=== PATIENT | female | born 2000 | race Caucasian/White ===

== ENCOUNTER 2021-07-18 12:19 | Emergency (ER) | payer MEDICAID ==
[~2021-07-18] VITALS: Ht 154.9 cm; Wt 49.9 kg
[2021-07-18 12:29] VITALS: BP_SYST 126
[2021-07-18] MEDS ORDERED: ONDANSETRON HCL 4 MG/2 ML VIAL IVP ONE (13:00)
[2021-07-18] MEDS ORDERED: MORPHINE 2 MG/ML INJ. SYRINGE IVP ONE (13:00)
[2021-07-18] MEDS ORDERED: NACL 0.9% 1,000 ML IV ONE (13:00)
[2021-07-18 13:36] LABS: CALCIUM 8.7 mg/dL (8.4-11.0); CREATININE 0.8 mg/dL (0.55-1.30); HEMATOCRIT 39.4 % (36-48); HEMOGLOBIN 13.6 g/dL (12.0-16.0); MEAN CORPUSCULAR HEMOGLOBIN 31 pg (27-31); MEAN CORPUSCULAR HGB CONC 35 % (32-36); MEAN CORPUSCULAR VOLUME 89 fL (79.0-98.0); POTASSIUM 3.6 mmol/L (3.5-5.1); RED BLOOD CELL COUNT(AUTO) 4.41 MIL/uL (4.2-6.2); RED CELL DISTRIBUTION WIDTH 13.1 % (9.0-15.0); WHITE BLOOD COUNT (AUTO) 5.4 K/uL (4.8-10.8)
[2021-07-18 13:37] LABS: BASOPHILS % (AUTO) 0.7 % (0.0-2.0); EOSINOPHILS % (AUTO) 0.3 % (0.0-4.0); LYMPHOCYTES # (AUTO) 2.1 K/uL (1.0-5.5); LYMPHOCYTES % (AUTO) 38.4 % (20.5-51.5); MONOCYTES # (AUTO) 0.3 K/uL (0.0-1.0); MONOCYTES % (AUTO) 6.4 % (1.7-9.3); NEUTROPHILS # (AUTO) 2.9 K/uL (1.8-7.7); NEUTROPHILS % (AUTO) 54.5 % (40.0-70.0); PLATELET COUNT (AUTO) 299 K/uL (130-430)
[2021-07-18 13:40] LABS: INR 1.1 (0.8-1.2); PROTHROMBIN TIME 11.2 SECS (9.5-12.5)
[2021-07-18 13:42] LABS: ALBUMIN 4.2 g/dL (3.4-4.8); TOTAL BILIRUBIN 1.5 mg/dL (0.0-1.0)
[2021-07-18 15:18] LABS: BILIRUBIN,URINE NEGATIVE (NEGATIVE); BLOOD, URINE NEGATIVE (NEGATIVE); CLARITY/URINE CLEAR (CLEAR); COLOR,URINE YELLOW (YELLOW); GLUCOSE,URINE NEGATIVE (NEGATIVE); KETONES,URINE 3+ (NEGATIVE); LEUKOCYTE ESTERASE ,URINE NEGATIVE (NEGATIVE); NITRITE, URINE NEGATIVE (NEGATIVE); PROTEIN URINE NEGATIVE (NEGATIVE); UROBILINOGEN,URINE 0.2 (0.2-1.0)
[2021-07-18] MEDS ORDERED: IBUP-1969 PO (15:36)
[2021-07-18 15:58] VITALS: BP_SYST 126
[2021-07-19] MEDS ORDERED: TRAM50TA PO (10:24)
[2021-07-19] MEDS ORDERED: ONDA-8 TL (10:24)
== END 2021-07-18 15:58 | disposition home or self-care (01) ==
LOC: SED 12:19
DX: R10.31 Right lower quadrant pain (principal)
CPT/HCPCS: 36415; 74176; 76376; 80053; 81003; 81025; 83690; 84702; 85025; 85610; 85730; 96361; 96374; 96375; 99284; J2270; J2405; J7030

== ENCOUNTER 2021-07-19 08:37 | Emergency (ER) | payer MEDICAID ==
[~2021-07-19] VITALS: Ht 157.5 cm; Wt 49.9 kg
[~2021-07-19 08:37] MED LIST: IBUP-1969 PO
[2021-07-19 08:53] VITALS: BP_SYST 139
[2021-07-19] MEDS ORDERED: KETOROLAC TROMETHAMINE 60 MG/2 ML VIAL IM ONE (09:00)
[2021-07-19] MEDS ORDERED: ONDANSETRON 4 MG ODT TAB PO ONE (09:00)
[2021-07-19 09:10] LABS: BILIRUBIN,URINE NEGATIVE (NEGATIVE); BLOOD, URINE NEGATIVE (NEGATIVE); CLARITY/URINE CLEAR (CLEAR); COLOR,URINE YELLOW (YELLOW); GLUCOSE,URINE NEGATIVE (NEGATIVE); KETONES,URINE 1+ (NEGATIVE); LEUKOCYTE ESTERASE ,URINE NEGATIVE (NEGATIVE); NITRITE, URINE NEGATIVE (NEGATIVE); PROTEIN URINE NEGATIVE (NEGATIVE); UROBILINOGEN,URINE 0.2 (0.2-1.0)
[2021-07-19 09:14] LABS: BASOPHILS % (AUTO) 0.8 % (0.0-2.0); EOSINOPHILS % (AUTO) 0.7 % (0.0-4.0); HEMATOCRIT 38.2 % (36-48); HEMOGLOBIN 13.2 g/dL (12.0-16.0); LYMPHOCYTES # (AUTO) 1.5 K/uL (1.0-5.5); LYMPHOCYTES % (AUTO) 28.6 % (20.5-51.5); MEAN CORPUSCULAR HEMOGLOBIN 31 pg (27-31); MEAN CORPUSCULAR HGB CONC 35 % (32-36); MEAN CORPUSCULAR VOLUME 89 fL (79.0-98.0); MONOCYTES # (AUTO) 0.4 K/uL (0.0-1.0); NEUTROPHILS # (AUTO) 3.2 K/uL (1.8-7.7); NEUTROPHILS % (AUTO) 62.9 % (40.0-70.0); PLATELET COUNT (AUTO) 291 K/uL (130-430); RED BLOOD CELL COUNT(AUTO) 4.29 MIL/uL (4.2-6.2); WHITE BLOOD COUNT (AUTO) 5.1 K/uL (4.8-10.8)
[2021-07-19] MEDS ORDERED: ONDA-8 TL (10:24)
[2021-07-19] MEDS ORDERED: TRAM50TA PO (10:24)
[2021-07-19 10:32] VITALS: BP_SYST 132
[2021-07-21 08:06] LABS: CHLAMYDIA TRACHOMATIS NAA Negative (Negative); NEISSERIA GONORRHOEAE NAA Negative (Negative)
== END 2021-07-19 10:32 | disposition home or self-care (01) ==
LOC: SED 08:37
DX: N94.6 Dysmenorrhea, unspecified (principal); R10.30 Lower abdominal pain, unspecified; Z79.899 Other long term (current) drug therapy
CPT/HCPCS: 36415; 81003; 85025; 87491; 87591; 96372; 99283; J1885; Q0162

== ENCOUNTER 2021-08-29 06:45 | Emergency (ER) | payer MEDICAID ==
[~2021-08-29] VITALS: Ht 154.9 cm; Wt 50.3 kg
[2021-08-29 06:45] VITALS: BP_SYST 115
[~2021-08-29 06:45] MED LIST changes: +ONDA-8 TL; +TRAM50TA PO
[2021-08-29] MEDS ORDERED: MORPHINE 2 MG/ML INJ. SYRINGE IVP ONE (07:15)
[2021-08-29] MEDS ORDERED: ONDANSETRON HCL 4 MG/2 ML VIAL IVP ONE (07:15)
[2021-08-29] MEDS ORDERED: PANTOPRAZOLE SODIUM 40 MG/VIAL (PROTONIX) IVP ONE (07:15)
[2021-08-29] MEDS ORDERED: NACL 0.9% 1,000 ML IV ONE (07:15)
[2021-08-29 08:01] LABS: BASOPHILS % (AUTO) 0.3 % (0.0-2.0); EOSINOPHILS % (AUTO) 0.6 % (0.0-4.0); HEMOGLOBIN 14.5 g/dL (12.0-16.0); LYMPHOCYTES # (AUTO) 1.5 K/uL (1.0-5.5); LYMPHOCYTES % (AUTO) 19.7 % (20.5-51.5); MEAN CORPUSCULAR HEMOGLOBIN 30 pg (27-31); MEAN CORPUSCULAR HGB CONC 34 % (32-36); MEAN CORPUSCULAR VOLUME 90 fL (79.0-98.0); MONOCYTES # (AUTO) 0.4 K/uL (0.0-1.0); MONOCYTES % (AUTO) 4.5 % (1.7-9.3); NEUTROPHILS # (AUTO) 5.9 K/uL (1.8-7.7); NEUTROPHILS % (AUTO) 74.9 % (40.0-70.0); PLATELET COUNT (AUTO) 371 K/uL (130-430); RED BLOOD CELL COUNT(AUTO) 4.79 MIL/uL (4.2-6.2); WHITE BLOOD COUNT (AUTO) 7.9 K/uL (4.8-10.8)
[2021-08-29 08:10] LABS: CALCIUM 8.2 mg/dL (8.4-11.0); CREATININE 0.82 mg/dL (0.55-1.30)
[2021-08-29 08:14] LABS: ALBUMIN 4.4 g/dL (3.4-4.8); TOTAL BILIRUBIN 1.1 mg/dL (0.0-1.0)
[2021-08-29 08:26] LABS: BILIRUBIN,URINE NEGATIVE (NEGATIVE); BLOOD, URINE NEGATIVE (NEGATIVE); CLARITY/URINE CLEAR (CLEAR); COLOR,URINE YELLOW (YELLOW); GLUCOSE,URINE NEGATIVE (NEGATIVE); KETONES,URINE TRACE (NEGATIVE); LEUKOCYTE ESTERASE ,URINE NEGATIVE (NEGATIVE); NITRITE, URINE NEGATIVE (NEGATIVE); PH,URINE 5.5 (5.0-8.0); PROTEIN URINE NEGATIVE (NEGATIVE); UROBILINOGEN,URINE 0.2 (0.2-1.0)
[2021-08-29] MEDS ORDERED: METOCLOPRAMIDE HCL 10 MG/2 ML VIAL IVP ONE (10:00)
[2021-08-29] MEDS ORDERED: DIPHENHYDRAMINE INJ 50 MG/ML VIAL IVP ONE (10:00)
[2021-08-29] MEDS ORDERED: PRO40 PO (11:18)
[2021-08-29 11:25] VITALS: BP_SYST 101
== END 2021-08-29 11:24 | disposition home or self-care (01) ==
LOC: SED 06:45
DX: R11.2 Nausea with vomiting, unspecified (principal); R10.10 Upper abdominal pain, unspecified; R19.7 Diarrhea, unspecified; Z79.899 Other long term (current) drug therapy
CPT/HCPCS: 36415; 80053; 81003; 81025; 83690; 84703; 85025; 96361; 96374; 96375; 99284; C9113; J1200; J2270; J2405; J2765; J7030

== ENCOUNTER 2021-11-08 13:39 | Emergency (ER) | payer MEDICAID, SELFPAY ==
[~2021-11-08] VITALS: Ht 157.5 cm; Wt 50.3 kg
[~2021-11-08 13:39] MED LIST changes: +PRO40 PO
[2021-11-08 14:10] VITALS: BP_SYST 130
--- NOTE | 2021-11-08 14:15 | NUR ---
Patient to ER bed 2 to gown for evaluation. Side rails up. Report given to SUZANNA GUEVARA.
--- NOTE | 2021-11-08 14:34 | NUR ---
Pt. bib cousin with c/o 05/31 abd. pain today and has not had a BM for 2 days, states last BM was hard and she had blood when she wiped, denies any hx. of hemmorhoids
--- NOTE | 2021-11-08 15:06 | NUR ---
Pt moved to hallway bed. Assumed care of patient. Patient awake, alert and oriented x 3. Reporting lower abdominal pain "shooting to back." Also reporting no B x 2 days. Awaiting MD evaluation.
--- NOTE | 2021-11-08 16:04 | NUR ---
Dr Valdez to bedside to assess patient
[2021-11-08] MEDS ORDERED: KETOROLAC TROMETHAMINE 15 MG VIAL IM ONE (16:15)
[2021-11-08 16:26] LABS: BASOPHILS # (AUTO) 0.1 K/uL (0.0-0.2); BASOPHILS % (AUTO) 0.8 % (0.0-2.0); EOSINOPHILS % (AUTO) 0.4 % (0.0-4.0); HEMATOCRIT 40.5 % (36-48); HEMOGLOBIN 13.5 g/dL (12.0-16.0); LYMPHOCYTES # (AUTO) 2.7 K/uL (1.0-5.5); LYMPHOCYTES % (AUTO) 28.6 % (20.5-51.5); MEAN CORPUSCULAR HEMOGLOBIN 30 pg (27-31); MEAN CORPUSCULAR HGB CONC 33 % (32-36); MEAN CORPUSCULAR VOLUME 89 fL (79.0-98.0); MONOCYTES # (AUTO) 0.5 K/uL (0.0-1.0); MONOCYTES % (AUTO) 5.2 % (1.7-9.3); PLATELET COUNT (AUTO) 314 K/uL (130-430); RED BLOOD CELL COUNT(AUTO) 4.57 MIL/uL (4.2-6.2); RED CELL DISTRIBUTION WIDTH 13.1 % (9.0-15.0); WHITE BLOOD COUNT (AUTO) 9.3 K/uL (4.8-10.8)
--- NOTE | 2021-11-08 16:36 | NUR ---
called lab for uranalisis results.
[2021-11-08 16:43] LABS: BILIRUBIN,URINE NEGATIVE (NEGATIVE); BLOOD, URINE NEGATIVE (NEGATIVE); CLARITY/URINE CLEAR (CLEAR); GLUCOSE,URINE NEGATIVE (NEGATIVE); KETONES,URINE NEGATIVE (NEGATIVE); LEUKOCYTE ESTERASE ,URINE NEGATIVE (NEGATIVE); NITRITE, URINE NEGATIVE (NEGATIVE); PROTEIN URINE NEGATIVE (NEGATIVE); UROBILINOGEN,URINE 0.2 (0.2-1.0)
[2021-11-08 16:45] LABS: CALCIUM 8.5 mg/dL (8.4-11.0); CREATININE 0.59 mg/dL (0.55-1.30); POTASSIUM 4.5 mmol/L (3.5-5.1)
[2021-11-08 16:50] LABS: COLOR,URINE STRAW (YELLOW)
[2021-11-08 16:51] LABS: TOTAL BILIRUBIN 1.2 mg/dL (0.0-1.0)
--- NOTE | 2021-11-08 17:02 | NUR ---
Called lab 4 Urine
[2021-11-08 17:10] LABS: HCG,QUAL RESULT NEGATIVE (NEGATIVE)
--- NOTE | 2021-11-08 17:35 | NUR ---
Patient given written and verbal discharge instructions and verbalizes understanding. ER MD discussed with patient the results and treatment provided. Patient in stable condition. Patient educated on pain management and to follow up with PMD. Pain scale 0/10. Opportunity for questions provided and answered.
[2021-11-08 17:37] VITALS: BP_SYST 103
== END 2021-11-08 17:37 | disposition home or self-care (01) ==
LOC: SED 13:39
DX: R10.30 Lower abdominal pain, unspecified (principal); Z79.899 Other long term (current) drug therapy
CPT/HCPCS: 36415; 80053; 81003; 81025; 84703; 85025; 96372; 99283; J1885

== ENCOUNTER 2022-02-11 12:54 | Emergency (ER) | payer MEDICAID ==
[~2022-02-11] VITALS: Ht 157.5 cm; Wt 50.8 kg
[2022-02-11 12:55] VITALS: BP_SYST 126
--- NOTE | 2022-02-11 12:55 | NUR ---
BROUGHT BACK TO BED IN HALLWAY, TRIAGED. REPORT GIVEN TO MELISSA
[2022-02-11] MEDS ORDERED: LORazepam 1 MG TABLET PO ONE (13:00)
--- NOTE | 2022-02-11 13:05 | NUR ---
ED MD AT BEDSIDE
--- NOTE | 2022-02-11 13:10 | NUR ---
RECEIVED PT IN BED H1 FOR SOB, AND FAST HR. PT IS STABLE, NAD, VSS, AAOx3, TO BE FURTHER ASSESSED BY ED MD
--- NOTE | 2022-02-11 14:20 | NUR ---
Patient given written and verbal discharge instructions and verbalizes understanding. ER MD discussed with patient the results and treatment provided. Patient in stable condition. ID arm band removed. Opportunity for questions provided and answered. Medication side effect fact sheet provided.
== END 2022-02-11 14:20 | disposition home or self-care (01) ==
LOC: SED 12:54
DX: F41.0 Panic disorder [episodic paroxysmal anxiety] (principal); Z79.899 Other long term (current) drug therapy
CPT/HCPCS: 71045; 93005; 99283

== ENCOUNTER 2022-07-05 07:52 | Emergency (ER) | payer MEDICAID ==
[~2022-07-05] VITALS: Ht 154.9 cm; Wt 47.6 kg
[2022-07-05 07:59] VITALS: BP_SYST 111
--- NOTE | 2022-07-05 08:04 | NUR ---
BIBS WITH C/C OF INCREASING ABD PAIN OVER LAST WEEK. PRESENTS WITH N/V. PT WITH HX OF ABDOMINAL PAIN X 1 YEAR. SEEN BY PMD, PREVIOUSLY PRESCRIBED ACID INHIBITORS AND ZOFRAN BUT NO LONGER TAKES THEM SINCE LAST MONTH DUE TO NO LONGER HAS PRESCRIPTION. PT STATES THEY HELPED BUT NOT ALWAYS EFFECTIVE. NO PRIOR MEDICAL HX. LMP 06/11/22. PT STATES HER PAIN IS WORSE ON HER MENSTRUAL CYCLE. PT UNABLE TO TOLERATE PO. PLACED IN ROOM 5.
[2022-07-05 08:10] LABS: BASOPHILS % (AUTO) 0.8 % (0.0-2.0); EOSINOPHILS % (AUTO) 0.5 % (0.0-4.0); HEMATOCRIT 41.7 % (36-48); LYMPHOCYTES # (AUTO) 1.6 K/uL (1.0-5.5); LYMPHOCYTES % (AUTO) 30.8 % (20.5-51.5); MEAN CORPUSCULAR VOLUME 88 fL (79.0-98.0); MONOCYTES # (AUTO) 0.3 K/uL (0.0-1.0); MONOCYTES % (AUTO) 5.1 % (1.7-9.3); NEUTROPHILS # (AUTO) 3.2 K/uL (1.8-7.7); NEUTROPHILS % (AUTO) 62.8 % (40.0-70.0); PLATELET COUNT (AUTO) 334 K/uL (130-430); RED BLOOD CELL COUNT(AUTO) 4.73 MIL/uL (4.2-6.2); RED CELL DISTRIBUTION WIDTH 13.6 % (9.0-15.0); WHITE BLOOD COUNT (AUTO) 5.1 K/uL (4.8-10.8)
--- NOTE | 2022-07-05 08:12 | NUR ---
REPORTED OF TO NURSE MARQUEZ, ABEL MILLER.
--- NOTE | 2022-07-05 08:17 | NUR ---
pt presents to the ER bib self from home. CC Abdominal pain located upper and lower quadrants with pressure. Diarrhea reported 1-2 weeks with intermittant constipation. N/V, lack of appetite low grade fever and chills. Pt notes LMP 06/11/22. Pt has had GI history for past year unable to state dx due to inability to follow up with PCP.
[2022-07-05] MEDS ORDERED: METOCLOPRAMIDE HCL 10 MG/2 ML VIAL IVP ONE (08:30)
[2022-07-05] MEDS ORDERED: NACL 0.9% 1,000 ML IV ONE (08:30)
[2022-07-05] MEDS ORDERED: DIPHENHYDRAMINE INJ 50 MG/ML VIAL IVP ONE (08:30)
[2022-07-05 08:54] LABS: CALCIUM 8.9 mg/dL (8.4-11.0); CREATININE 0.87 mg/dL (0.55-1.30); POTASSIUM 4.1 mmol/L (3.5-5.1)
[2022-07-05 09:08] LABS: ALBUMIN 4.2 g/dL (3.4-4.8); TOTAL BILIRUBIN 1.6 mg/dL (0.0-1.0)
--- NOTE | 2022-07-05 09:15 | NUR ---
pt to radiology with tech via wc.
--- NOTE | 2022-07-05 10:05 | NUR ---
pt resting with lights off no complaints at this time. IVF running.
[2022-07-05] MEDS ORDERED: FAMO-132 PO (10:27)
[2022-07-05] MEDS ORDERED: IBUP-1969 PO (10:27)
[2022-07-05] MEDS ORDERED: ONDA-8 TL (10:27)
--- NOTE | 2022-07-05 10:43 | NUR ---
Patient given written and verbal discharge instructions and verbalizes understanding. ER MD discussed with patient the results and treatment provided. Patient in stable condition. ID arm band removed. IV catheter removed intact and dressing applied, no active bleeding. Rx of ZOFRAN, PEPCID, IBUPROFEN given. Patient educated on pain management and to follow up with PMD. Pain Scale 0/10. Opportunity for questions provided and answered. Medication side effect fact sheet provided. WORK NOTE PROVIDED REQUESTED
== END 2022-07-05 10:43 | disposition home or self-care (01) ==
LOC: SED 07:52
DX: R10.13 Epigastric pain (principal); N83.202 Unspecified ovarian cyst, left side; N83.201 Unspecified ovarian cyst, right side; Z79.899 Other long term (current) drug therapy
CPT/HCPCS: 99284; 96374; 76856; 96361; 96375; 80053; 84702; 83690; 85025; 36415; J1200; J2765; J7030

== ENCOUNTER 2022-07-23 06:33 | Emergency (ER) | payer MEDICAID ==
[~2022-07-23] VITALS: Ht 154.9 cm; Wt 48.1 kg
[~2022-07-23 06:33] MED LIST changes: +FAMO-132 PO
[2022-07-23] MEDS ORDERED: ONDANSETRON HCL 4 MG/2 ML VIAL IVP ONE (06:45)
[2022-07-23] MEDS ORDERED: ACETAMINOPHEN 500 MG TABLET PO ONE (06:45)
[2022-07-23] MEDS ORDERED: NACL 0.9% 1,000 ML IV ONE (06:45)
[2022-07-23 07:07] VITALS: BP_SYST 114
--- NOTE | 2022-07-23 07:15 | NUR ---
Patient to ER bed 8 to gown for evaluation. Side rails up. Report given to SEUN GUEVARA.
[2022-07-23 07:51] LABS: BASOPHILS % (AUTO) 0.6 % (0.0-2.0); EOSINOPHILS % (AUTO) 0.4 % (0.0-4.0); HEMATOCRIT 38.7 % (36-48); LYMPHOCYTES # (AUTO) 1.3 K/uL (1.0-5.5); LYMPHOCYTES % (AUTO) 22.1 % (20.5-51.5); MEAN CORPUSCULAR VOLUME 87 fL (79.0-98.0); MONOCYTES # (AUTO) 0.4 K/uL (0.0-1.0); MONOCYTES % (AUTO) 6.2 % (1.7-9.3); NEUTROPHILS % (AUTO) 70.7 % (40.0-70.0); PLATELET COUNT (AUTO) 325 K/uL (130-430); RED BLOOD CELL COUNT(AUTO) 4.44 MIL/uL (4.2-6.2); RED CELL DISTRIBUTION WIDTH 13.7 % (9.0-15.0); WHITE BLOOD COUNT (AUTO) 5.7 K/uL (4.8-10.8)
--- NOTE | 2022-07-23 07:55 | NUR ---
Pt presents to the ER bib spouse CC: "morning sickness" Pt is approx. 4 weeks preg. within first trimester. Nausea no episodes of vomiting. Denies diarrhea and constipation. Skin intact aaox4.
--- NOTE | 2022-07-23 08:09 | NUR ---
Pt provided education of and use of Tylenol and Zofran. Pt encouraged to stay hydrated during .
[2022-07-23 08:26] LABS: CALCIUM 8.8 mg/dL (8.4-11.0); CREATININE 0.8 mg/dL (0.55-1.30); POTASSIUM 4.2 mmol/L (3.5-5.1)
[2022-07-23 08:41] LABS: BILIRUBIN,URINE NEGATIVE (NEGATIVE); BLOOD, URINE NEGATIVE (NEGATIVE); CLARITY/URINE CLEAR (CLEAR); COLOR,URINE YELLOW (YELLOW); GLUCOSE,URINE NEGATIVE (NEGATIVE); KETONES,URINE 2+ (NEGATIVE); LEUKOCYTE ESTERASE ,URINE NEGATIVE (NEGATIVE); NITRITE, URINE NEGATIVE (NEGATIVE); PROTEIN URINE NEGATIVE (NEGATIVE); UROBILINOGEN,URINE 0.2 (0.2-1.0)
[2022-07-23 09:06] LABS: ALBUMIN 3.9 g/dL (3.4-4.8); TOTAL BILIRUBIN 1.8 mg/dL (0.0-1.0)
[2022-07-23] MEDS ORDERED: ONDA-8 TL (09:13)
[2022-07-23] MEDS ORDERED: ACET-73 PO (09:13)
--- NOTE | 2022-07-23 09:33 | NUR ---
Patient given written and verbal discharge instructions and verbalizes understanding. ER MD discussed with patient the results and treatment provided. Patient in stable condition. ID arm band removed. IV catheter removed intact and dressing applied, no active bleeding. Rx of Zofran and Tylenol given. Patient educated on pain management and to follow up with PMD. Opportunity for questions provided and answered. Medication side effect fact sheet provided.
[2022-07-23 09:34] VITALS: BP_SYST 114
== END 2022-07-23 09:34 | disposition home or self-care (01) ==
LOC: SED 06:33
DX: O26.891 Other specified pregnancy related conditions, first trimester (principal); Z3A.01 Less than 8 weeks gestation of pregnancy
CPT/HCPCS: 99284; 96374; 76801; 96361; 80053; 84702; 85025; 86886; 86900; 86901; 36415; 76817; 81003; J2405; J7030

== ENCOUNTER 2022-07-25 08:43 | Emergency (ER) | payer MEDICAID ==
[~2022-07-25] VITALS: Ht 154.9 cm; Wt 48.1 kg
[~2022-07-25 08:43] MED LIST changes: +ACET-73 PO
[2022-07-25 08:50] VITALS: BP_SYST 120
[2022-07-25 10:09] LABS: BASOPHILS # (AUTO) 0.1 K/uL (0.0-0.2); BASOPHILS % (AUTO) 0.8 % (0.0-2.0); EOSINOPHILS % (AUTO) 0.3 % (0.0-4.0); HEMATOCRIT 39.8 % (36-48); LYMPHOCYTES # (AUTO) 1.7 K/uL (1.0-5.5); LYMPHOCYTES % (AUTO) 23.3 % (20.5-51.5); MEAN CORPUSCULAR VOLUME 88 fL (79.0-98.0); MONOCYTES # (AUTO) 0.4 K/uL (0.0-1.0); MONOCYTES % (AUTO) 5.5 % (1.7-9.3); NEUTROPHILS # (AUTO) 5.2 K/uL (1.8-7.7); NEUTROPHILS % (AUTO) 70.1 % (40.0-70.0); PLATELET COUNT (AUTO) 348 K/uL (130-430); RED BLOOD CELL COUNT(AUTO) 4.51 MIL/uL (4.2-6.2); RED CELL DISTRIBUTION WIDTH 13.4 % (9.0-15.0); WHITE BLOOD COUNT (AUTO) 7.4 K/uL (4.8-10.8)
[2022-07-25 10:30] VITALS: BP_SYST 120
== END 2022-07-25 10:30 | disposition home or self-care (01) ==
LOC: SED 08:43
DX: O26.891 Other specified pregnancy related conditions, first trimester (principal); Z3A.01 Less than 8 weeks gestation of pregnancy
CPT/HCPCS: 36415; 76801; 84702; 85025; 99284

== ENCOUNTER 2022-10-05 07:17 | Emergency (ER) | payer MEDICAID ==
[~2022-10-05] VITALS: Ht 154.9 cm; Wt 54.4 kg
[2022-10-05] MEDS ORDERED: AMLO5TAB4 PO (07:32)
[2022-10-05] MEDS ORDERED: LACT10SO7 PO (07:32)
[2022-10-05] MEDS ORDERED: ISOS20TA8 PO (07:32)
[2022-10-05] MEDS ORDERED: GLIP10TA21 PO (07:32)
[2022-10-05] MEDS ORDERED: CAT1PAT TD (07:32)
[2022-10-05] MEDS ORDERED: LOP600 PO (07:32)
[2022-10-05] MEDS ORDERED: CALC-939 PO (07:32)
[2022-10-05] MEDS ORDERED: VITA250012 PO (07:32)
[2022-10-05] MEDS ORDERED: FER300L PO (07:32)
[2022-10-05] MEDS ORDERED: DOCU-144 PO (07:32)
[2022-10-05] MEDS ORDERED: ASA81 PO (07:32)
[2022-10-05] MEDS ORDERED: HYDR-4039 PO (07:32)
[2022-10-05] MEDS ORDERED: LEVO100T PO (07:32)
[2022-10-05 08:10] VITALS: BP_SYST 124
[2022-10-05 09:17] LABS: BASOPHILS % (AUTO) 0.4 % (0.0-2.0); EOSINOPHILS % (AUTO) 0.5 % (0.0-4.0); HEMATOCRIT 39.3 % (36-48); HEMOGLOBIN 13.4 g/dL (12.0-16.0); LYMPHOCYTES # (AUTO) 1.7 K/uL (1.0-5.5); LYMPHOCYTES % (AUTO) 20.1 % (20.5-51.5); MEAN CORPUSCULAR HEMOGLOBIN 31 pg (27-31); MEAN CORPUSCULAR HGB CONC 34 % (32-36); MEAN CORPUSCULAR VOLUME 90 fL (79.0-98.0); MONOCYTES # (AUTO) 0.5 K/uL (0.0-1.0); MONOCYTES % (AUTO) 5.3 % (1.7-9.3); NEUTROPHILS # (AUTO) 6.4 K/uL (1.8-7.7); NEUTROPHILS % (AUTO) 73.7 % (40.0-70.0); PLATELET COUNT (AUTO) 334 K/uL (130-430); RED BLOOD CELL COUNT(AUTO) 4.36 MIL/uL (4.2-6.2); RED CELL DISTRIBUTION WIDTH 12.9 % (9.0-15.0); WHITE BLOOD COUNT (AUTO) 8.6 K/uL (4.8-10.8)
[2022-10-05 09:39] LABS: CALCIUM 8.9 mg/dL (8.4-11.0); CREATININE 0.6 mg/dL (0.55-1.30)
[2022-10-05 09:43] LABS: ALBUMIN 3.7 g/dL (3.4-4.8)
[2022-10-05] MEDS ORDERED: ACET325T53 PO (10:09)
[2022-10-05 10:21] LABS: BILIRUBIN,URINE NEGATIVE (NEGATIVE); BLOOD, URINE NEGATIVE (NEGATIVE); CLARITY/URINE CLEAR (CLEAR); COLOR,URINE YELLOW (YELLOW); GLUCOSE,URINE NEGATIVE (NEGATIVE); KETONES,URINE NEGATIVE (NEGATIVE); LEUKOCYTE ESTERASE ,URINE NEGATIVE (NEGATIVE); NITRITE, URINE NEGATIVE (NEGATIVE); PROTEIN URINE NEGATIVE (NEGATIVE); UROBILINOGEN,URINE 0.2 (0.2-1.0)
[2022-10-05 10:39] VITALS: BP_SYST 119
== END 2022-10-05 10:32 | disposition home or self-care (01) ==
LOC: SED 07:17
DX: O26.892 Other specified pregnancy related conditions, second trimester (principal); R10.2 Pelvic and perineal pain; R10.30 Lower abdominal pain, unspecified; J45.909 Unspecified asthma, uncomplicated; Z79.899 Other long term (current) drug therapy; Z3A.16 16 weeks gestation of pregnancy
CPT/HCPCS: 36415; 76805-TC; 80053; 81003; 83690; 85025; 99284